=== PATIENT | male | born 1995 | race Caucasian/White ===

== ENCOUNTER 2017-10-22 19:53 | Emergency (ER) | payer SELFPAY ==
[2017-10-22] MEDS ORDERED: NACL 0.9% 500 ML IR ONE (23:02)
[2017-10-22] MEDS ORDERED: NACL 0.9% IR ONE (23:38)
--- NOTE | 2017-10-22 23:40 | Emergency Department Report ---
- General Chief Complaint: Wound/Laceration Stated Complaint: HEAD LAC Time Seen by Provider: 10/22/17 23:31 Source: patient, family Mode of arrival: Ambulatory Limitations: Language Barrier (SPSNISH SPEAKING) - History of Present Illness -: Sudden (TODAY) Location: scalp (OCCIPITAL) Place: home Context: accidental, fall Associated Symptoms: pain. denies: loss of feeling/numbness, suspect foreign body present, unable to move injured part, weakness followed by dizziness, nausea/vomiting, fever Treatments Prior to Arrival: bandage - Related Data Previous Rx's Medication Instructions Recorded Last Taken Type oxyCODONE /ACETAMINOPHEN [Percocet 2 tab PO Q6HR PRN #14 tablet 10/23/17 Unknown Rx 5/325] Allergies Allergy/AdvReac Type Severity Reaction Status Date / Time No Known Allergies Allergy Unverified 10/22/17 20:04 ED Review of Systems ROS: Stated complaint: HEAD LAC Other details as noted in HPI Constitutional: denies: chills, fever Eyes: denies: eye pain, eye discharge, vision change ENT: denies: ear pain, throat pain Respiratory: denies: cough, shortness of breath, wheezing Cardiovascular: denies: chest pain, palpitations Endocrine: no symptoms reported Gastrointestinal: denies: abdominal pain, nausea, diarrhea Genitourinary: denies: urgency, dysuria Musculoskeletal: denies: back pain, joint swelling, arthralgia Skin: denies: rash, lesions Neurological: denies: headache, weakness, paresthesias Psychiatric: denies: anxiety, depression Hematological/Lymphatic: denies: easy bleeding, easy bruising ED Past Medical Hx - Past Medical History Previous Medical History?: No - Surgical History Past Surgical History?: No - Social History Smoking Status: Never Smoker Substance Use Type: None - Medications Home Medications: Home Medications Medication Instructions Recorded Confirmed Last Taken Type oxyCODONE /ACETAMINOPHEN [Percocet 2 tab PO Q6HR PRN #14 tablet 10/23/17 Unknown Rx 5/325] ED Physical Exam - General Limitations: Language Barrier General appearance: alert, in no apparent distress - Head Head exam: Present: normocephalic, other (occipital scalp laceration and hematoma,actively bleeding) - Expanded Head Exam Expanded Head exam: Present: laceration (OCCIPITAL SCALP), hematoma - Eye Eye exam: Present: normal appearance, EOMI - ENT ENT exam: Present: mucous membranes moist - Neck Neck exam: Present: normal inspection, full ROM - Respiratory Respiratory exam: Present: normal lung sounds bilaterally. Absent: respiratory distress - Cardiovascular Cardiovascular Exam: Present: regular rate, normal rhythm. Absent: systolic murmur, diastolic murmur, rubs, gallop - GI/Abdominal GI/Abdominal exam: Present: soft, normal bowel sounds. Absent: distended, tenderness - Rectal Rectal exam: Present: deferred - Extremities Exam Extremities exam: Present: normal inspection - Back Exam Back exam: Present: normal inspection - Neurological Exam Neurological exam: Present: alert, oriented X3 - Psychiatric Psychiatric exam: Present: normal affect, normal mood - Skin Skin exam: Present: warm, dry, intact, normal color. Absent: rash ED Course Vital Signs 10/22/17 20:05 Temperature 97.9 F Pulse Rate 56 L Respiratory 14 Rate Blood Pressure 120/68 O2 Sat by Pulse 97 Oximetry - Laceration /Wound Repair Occipital Wound Location: head Wound's Depth, Shape: into muscle, irregular Wound Explored: clean Betadine Prep?: Yes Anesthesia: 1% Lidocaine (2%) Wound Debrided: moderate Layer Closure?: No Sterile Dressing Applied?: Yes ED Medical Decision Making - Radiology Data Radiology results: report reviewed (ct head: parietal hematoma,no skull fracture or intrnal injury) - Medical Decision Making The pt is now nauseated , I am not sure if it is due to the stapling of his head,pain or because of head bleed thus I will scan his head. He has been given zofran 8mg odt. Critical care attestation.: If time is entered above; I have spent that time in minutes in the direct care of this critically ill patient, excluding procedure time. ED Disposition Clinical Impression: Laceration Head injury, acute Qualifiers: Encounter type: initial encounter Qualified Code(s): S09.90XA - Unspecified injury of head, initial encounter Disposition: - TO HOME OR SELFCARE Is pt being admited?: No Does the pt Need Aspirin: No Condition: Stable Instructions: Laceration (ED), Minor Head Injury (ED) Additional Instructions: return to er or go to your dr in 12 days to remove the bernardo. return to the er for any reason Prescriptions: oxyCODONE /ACETAMINOPHEN [Percocet 5/325] 2 tab PO Q6HR PRN #14 tablet PRN Reason: Pain Referrals: PRIMARY CARE, [Primary Care Provider] - 3-5 Days Time of Disposition: 23:35
[2017-10-22] MEDS ORDERED: XYLOCAINE 2% INFILTRATI ONE (23:42)
[2017-10-23] MEDS ORDERED: ZOFRAN ODT ONE (00:25)
[2017-10-23] MEDS ORDERED: XYLOCAINE 2% INFILTRATI ONE (00:25)
[2017-10-23] MEDS ORDERED: ZOFRAN ODT PO ONE (00:26)
--- NOTE | 2017-10-23 01:41 | Cat Scan Report ---
FINAL REPORT EXAM: CT HEAD/BRAIN WO CON HISTORY: occipital head trauma,fall TECHNIQUE: Routine axial imaging was obtained of the brain without IV contrast. FINDINGS: There is a small right parietal scalp hematoma. There is no evidence of skull fracture. There is no evidence of intracranial hemorrhage or infarct. The ventricular system is appropriate in size and is symmetric. The visualized sinuses are clear. The mastoid air cells are well pneumatized. IMPRESSION: Small right parietal scalp hematoma. No evidence of skull fracture or intracranial injury.
[2017-10-23 03:57] VITALS: BP 112/59
== END 2017-10-23 02:47 | disposition home or self-care (01) ==
LOC: ED 19:53
DX: S01.01XA Laceration without foreign body of scalp, initial encounter (principal); W18.30XA Fall on same level, unspecified, initial encounter; Y93.89 Activity, other specified; Y92.89 Other specified places as the place of occurrence of the external cause; Y99.8 Other external cause status
CPT/HCPCS: 70450; 99283; Q0162